=== PATIENT | female | born 1935 | race Caucasian/White ===

== ENCOUNTER → 2016-08-21 | Outpatient (CLI) | payer MEDICARE | LOC: KOH-I 14:57 | DX: E11.621 Type 2 diabetes mellitus with foot ulcer (principal); M79.89 Other specified soft tissue disorders; R93.7 Abnormal findings on diagnostic imaging of other parts of musculoskeletal system | CPT/HCPCS: 73718 ==

== ENCOUNTER → 2016-10-03 | Outpatient (CLI) | payer MEDICARE ==
[~2016-10-03] VITALS: Ht 160 cm; Wt 59.0 kg
[2016-10-03 09:59] LABS: BUN/CREATININE RATIO 24 (0-10)
== END ==
LOC: OPSV 08:55
PROVIDERS: Podiatrist Foot & Ankle Surgery
DX: M86.9 Osteomyelitis, unspecified (principal)
CPT/HCPCS: 36415; 80048; 82550; 96365; J0696; J0878; J7050